=== PATIENT | male | born 1995 | race Caucasian/White ===

== ENCOUNTER 2018-10-08 19:03 | Emergency (ER) | payer SELFPAY ==
[~2018-10-08] VITALS: Ht 172.7 cm; Wt 81.3 kg
[2018-10-08 19:53] LABS: BASOPHILS # (AUTO) 0.06 x10^3/uL (0-0.1); BASOPHILS % (AUTO) 1 % (0-1); EOSINOPHILS # (AUTO) 1.15 x10^3/uL (0-0.4); EOSINOPHILS % (AUTO) 14 % (1-7); LYMPHOCYTES # (AUTO) 1.91 x10^3/uL (1-3.4); LYMPHOCYTES % (AUTO) 24 % (22-44); MD NO; MEAN CORPUSCULAR HEMOGLOBIN 29.4 pg (27.5-34.5); MEAN CORPUSCULAR HGB CONC 33.4 g/dL (33.2-36.2); MEAN CORPUSCULAR VOLUME 87.8 fL (81-97); MEAN PLATELET VOLUME 8.2 fL (7.4-10.4); MONOCYTES # (AUTO) 0.54 x10^3/uL (0.2-0.8); MONOCYTES % (AUTO) 7 % (2-9); NEUTROPHILS # (AUTO) 4.29 x10^3/uL (1.8-6.8); NEUTROPHILS % (AUTO) 54 % (42-75); PLATELET COUNT 307 x10^3/uL (130-400); RED BLOOD COUNT 5.89 x10^6/uL (4.38-5.82); RED CELL DISTRIBUTION WIDTH 12.5 % (9.4-14.8)
[2018-10-08 20:04] LABS: ALANINE AMINOTRANSFERASE 76 U/L (12-78); ALBUMIN 4.3 g/dL (3.4-5.0); ANION GAP 5 mmol/L (5-15); CALCIUM 8.9 mg/dL (8.5-10.1); CHLORIDE 105 mmol/L (98-107); CREATININE 0.99 mg/dL (0.7-1.3)
--- NOTE | 2018-10-08 20:05 | NUR ---
pt here for abd pain x 5 days with n/v after eating. Pt in nad. Pt denies med hx. vss. UA sent to lab. call light in reach
[2018-10-08 20:06] LABS: ALKALINE PHOSPHATASE 138 U/L (45-117); BILIRUBIN,TOTAL 0.3 mg/dL (0.2-1.0); TOTAL PROTEIN 8.5 g/dL (6.4-8.2)
[2018-10-08 20:12] LABS: MICROSCOPIC NOT IND
[2018-10-08 20:15] LABS: CULTURE INDICATED? NO
[2018-10-08 20:20] VITALS: BP 119/72
--- NOTE | 2018-10-08 21:03 | NUR ---
Patient given discharge instructions and they have confirmed that they understand the instructions. Patient ambulatory with steady gait.
== END 2018-10-08 21:05 | disposition home or self-care (01) ==
LOC: ED 20:15
DX: R10.33 Periumbilical pain (principal); R19.7 Diarrhea, unspecified
CPT/HCPCS: 36415; 80053; 81003; 83690; 85025; 99283

== ENCOUNTER 2018-11-22 18:32 | Emergency (ER) | payer SELFPAY ==
[~2018-11-22] VITALS: Ht 172.7 cm; Wt 79.0 kg
[2018-11-22 19:30] LABS: BASOPHILS # (AUTO) 0.01 x10^3/uL (0-0.1); BASOPHILS % (AUTO) 0 % (0-1); EOSINOPHILS % (AUTO) 5 % (1-7); LYMPHOCYTES # (AUTO) 0.58 x10^3/uL (1-3.4); LYMPHOCYTES % (AUTO) 6 % (22-44); MD NO; MEAN CORPUSCULAR HEMOGLOBIN 29.7 pg (27.5-34.5); MEAN CORPUSCULAR HGB CONC 34.2 g/dL (33.2-36.2); MEAN CORPUSCULAR VOLUME 86.8 fL (81-97); MEAN PLATELET VOLUME 7.8 fL (7.4-10.4); MONOCYTES # (AUTO) 0.54 x10^3/uL (0.2-0.8); MONOCYTES % (AUTO) 5 % (2-9); NEUTROPHILS # (AUTO) 8.46 x10^3/uL (1.8-6.8); NEUTROPHILS % (AUTO) 84 % (42-75); PLATELET COUNT 280 x10^3/uL (130-400); RED BLOOD COUNT 5.53 x10^6/uL (4.38-5.82); RED CELL DISTRIBUTION WIDTH 12.4 % (9.4-14.8)
[2018-11-22] MEDS ORDERED: SODIUM CHLORIDE 0.9% 1,000ML IVBOLUS ONE (19:30)
[2018-11-22] MEDS ORDERED: SODIUM CHLORIDE FLUSH 10ML SYR IVF ONE (19:30)
[2018-11-22] MEDS ORDERED: ACETAMINOPHEN 500 MG TABLET PO ONE (19:30)
[2018-11-22] MEDS ORDERED: ONDANSETRON 2MG/ML, 2ML IVPush ONE (19:30)
[2018-11-22 19:36] LABS: ALANINE AMINOTRANSFERASE 40 U/L (12-78); ANION GAP 8 mmol/L (5-15); CALCIUM 8.4 mg/dL (8.5-10.1); CHLORIDE 107 mmol/L (98-107); CREATININE 1.05 mg/dL (0.7-1.3)
[2018-11-22 19:38] LABS: ALKALINE PHOSPHATASE 105 U/L (45-117); BILIRUBIN,TOTAL 0.5 mg/dL (0.2-1.0); TOTAL PROTEIN 7.9 g/dL (6.4-8.2)
[2018-11-22 19:39] LABS: RAPID INFLUENZA A Negative (Negative); RAPID INFLUENZA B Negative (Negative)
--- NOTE | 2018-11-22 19:54 | NUR ---
PT TO ED FOR N/V/D AND GENERALIZED BODY ACHES SINCE LAST NIGHT. EDMD ASSESSMENT COMPLETE. IV ESTABLISHED. LABS DRAWN. AWAITING RESULTS.
[2018-11-22] MEDS ORDERED: ONDANSETRON 2MG/ML, 2ML ONE (20:01)
[2018-11-22] MEDS ORDERED: ACETAMINOPHEN 500 MG TABLET ONE (20:01)
--- NOTE | 2018-11-22 20:42 | NUR ---
PT RESTING IN ROOM. TACHY, HYPERTHERMIC, ALL OTHER VSS. NO NEEDS AT THIS TIME. UA COLLECTED AND SENT. AWAITING RESULTS.
[2018-11-22 20:57] LABS: MICROSCOPIC AUTO
[2018-11-22 21:03] LABS: CULTURE INDICATED? NO
[2018-11-22] MEDS ORDERED: IBUPROFEN 200 MG TABLET ONE (21:25)
[2018-11-22] MEDS ORDERED: SODIUM CHLORIDE 0.9%, 500ML IVBOLUS ONE (21:30)
[2018-11-22] MEDS ORDERED: IBUPROFEN 200 MG TABLET PO ONE (21:30)
--- NOTE | 2018-11-22 21:35 | NUR ---
new medication ordered received and administered. no needs at this time. vs unchanged. call light within reach.
--- NOTE | 2018-11-22 21:51 | NUR ---
RECEIVED REPORT FROM KANNAN SANTANA, ASSUMING CARE AT THIS TIME
--- NOTE | 2018-11-22 22:20 | NUR ---
MD TO BEDSIDE TO RECHECK PT. FEVER DECREASING, AND HR NORMAL AT THIS TIME
[2018-11-22 22:58] VITALS: BP 102/51
== END 2018-11-22 23:01 | disposition home or self-care (01) ==
LOC: ED 22:09
DX: K52.9 Noninfective gastroenteritis and colitis, unspecified (principal); R11.2 Nausea with vomiting, unspecified; R19.7 Diarrhea, unspecified; R00.0 Tachycardia, unspecified
CPT/HCPCS: 36415; 80053; 81001; 83605; 83690; 85025; 87040; 87400; 96361; 96374; 99283; J2405; J7030; J7040